=== PATIENT | female | born 1945 | race Caucasian/White ===

== ENCOUNTER 2017-02-14 22:27 | Emergency (ER) | payer OTHER ==
[2017-02-14] MEDS ORDERED: EPINEPHrine 1 MG/10 ML SYR IVP ONE ×3 (22:30→23:00)
--- NOTE | 2017-02-14 22:46 | EDPHY ---
H & P Time Seen by Provider: 02/14/17 22:42 HPI/ROS: CHIEF COMPLAINT: Cardiac arrest HISTORY OF PRESENT ILLNESS: The patient is a 71-year-old female who EMS reports has a history of asthma only. The patient reportedly began having chest and arm pain this evening about an hour ago. She then vomited and became unconscious. Her called 911 and the began coaching him through CPR. EMS arrived about 5 minutes later and found her to be in PEA. They intubated her with a Robert tube and continued CPR and gave 4 rounds of epinephrine. She did not have any return of pulses. REVIEW OF SYSTEMS: Unable to obtain EXAM: GENERAL: CPR progress HEAD: Atraumatic, normocephalic. EYES: Pupils to and fixed ENT: No obvious trauma NECK: Cervical collar placed to assist holding Robert tube in place LUNGS: Equal breath sounds with bagging HEART: Pulseless ABDOMEN: Slightly bloated BACK: Not examined EXTREMITIES: Mottled NEUROLOGICAL: No spontaneous movement, intubated without sedation PSYCH: Unable to assess SKIN: Slightly cold Source: Patient, Family, EMS Exam Limitations: No limitations - Medical/Surgical History Hx Asthma: No Hx Chronic Respiratory Disease: No Hx Diabetes: No Hx Cardiac Disease: No Hx Renal Disease: No Hx Cirrhosis: No Hx Alcoholism: No - Family History Significant Family History: No pertinent family hx - Social History Alcohol Use: None Drug Use: None Constitutional: Initial Vital Signs Heart Rate 144 H 02/14/17 22:35 Blood Pressure 122/110 H 02/14/17 22:35 Allergies/Adverse Reactions: No Known Allergies Allergy (Unverified 02/14/17 22:51) Medical Decision Making Procedures: Intubation: emergent intubation. While manually bagging the patient and maintaining the airway, The patient did not require sedation. A 7.5 endotracheal tube was placed using the Glidescope. It was placed at 22 cm at the teeth. Placement was confirmed by direct visualization, good color change, and bilateral breath sounds with absent gastric sounds. Chest x-ray is pending. Saturations improved significantly and the procedure was successful. Art line placement: During CPR the patient's right femoral artery was cannulated with an art line using ultrasound guidance. ED Course/Re-evaluation: We continued CPR and gave 2 more rounds of epinephrine. The patient has had previously bicarbonate as well. She remained in PA. Bedside ultrasound revealed no cardiac motion. I placed an art line which did not reveal any spontaneous pulses. I into the patient immediately upon arrival and we had good CO2 readings. CPR continued with the patient's in the room. Code was called at 10:41 p.m.. Differential Diagnosis: Partial list of the Differential diagnosis considered include but were not limited to; cardiac arrest, stroke, PE, overdose Critical Care Time: I spent a total of 25 minutes of critical care time in obtaining history, performing a physical exam, bedside monitoring of interventions, collecting and interpreting tests and discussion with consultants but not including time spent performing procedures. - Data Points Laboratory Results: 02/14/17 22:34 POC Hgb 15.0 gm/dL gm/dL (12.6-16.3) POC Hct 44 % % (38-47) POC Sodium 141 mEq/L mEq/L (134-144) POC Potassium 4.2 mEq/L mEq/L (3.3-5.0) POC Chloride 101 mEq/L mEq/L (97-110) POC BUN 14 mg/dL mg/dL (7-23) POC Creatinine 0.8 mg/dL mg/dL (0.6-1.0) POC Glucose 341 mg/dL H mg/dL (70-100) Medications Given: Discontinued Medications Epinephrine HCl (Epinephrine) 1 mg IVP EDNOW ONE Stop: 02/14/17 22:31 Last Admin: 02/14/17 22:30 Dose: 1 mg Epinephrine HCl (Epinephrine) 1 mg IVP EDNOW ONE Stop: 02/14/17 22:36 Last Admin: 02/14/17 22:35 Dose: 1 mg Point of Care Test Results: 02/14/17 22:34 POC Sodium 141 POC Potassium 4.2 POC Chloride 101 POC BUN 14 POC Creatinine 0.8 POC Glucose 341 H Departure - Departure Disposition: Clinical Impression: Cardiac arrest Condition: Critical Referrals: Patient,NotPresent [Unknown] - As per Instructions
[2017-02-14 23:52] VITALS: BP 122/110; PULSE 144
== END 2017-02-15 00:46 | disposition expired ==
LOC: EDUNIT#
PROC: 5A19054 Respiratory Ventilation, Single, Nonmechanical (ICD-10-PCS; principal; 2017-02-14)
PROC: 0BH17EZ Insertion of Endotracheal Airway into Trachea, Via Natural or Artificial Opening (ICD-10-PCS; principal; 2017-02-14)
DX: I46.9 Cardiac arrest, cause unspecified (principal)
CPT/HCPCS: 82947-QW